=== PATIENT | female | born 1935 | race Two or more races ===

== ENCOUNTER 2018-06-30 06:42 | Day surgery (SDC) | payer MEDICARE, OTHER ==
[~2018-06-30] VITALS: Ht 149.9 cm; Wt 61.2 kg
[2018-06-30 07:27] VITALS: BP 135/70
[2018-06-30 11:25] VITALS: BP 133/66
== END 2018-06-30 09:55 | disposition home or self-care (01) ==
LOC: DS 06:42 → GI 07:30 → OR 07:30 → DS 09:55
PROVIDERS: Internal Medicine
PROC: 0DB68ZZ Excision of Stomach, Via Natural or Artificial Opening Endoscopic (ICD-10-PCS; principal; 2018-06-30 07:30)
DX: K29.50 Unspecified chronic gastritis without bleeding (principal); K21.9 Gastro-esophageal reflux disease without esophagitis; E11.9 Type 2 diabetes mellitus without complications; I10 Essential (primary) hypertension; E78.5 Hyperlipidemia, unspecified; Z68.26 Body mass index [BMI] 26.0-26.9, adult
CPT/HCPCS: 43235; J1200; J1610; J2250; J2310; J3010; J3490